=== PATIENT | female | born 1985 | race Two or more races ===

== ENCOUNTER 2017-02-01 14:07 | Emergency (ER) | payer OTHER ==
[~2017-02-01] VITALS: Ht 170.2 cm; Wt 90.7 kg
[~2017-02-01 14:07] MED LIST: FLEXERIL PO; IBUPROFEN800 MG PO
== END 2017-02-01 15:53 | disposition home or self-care (01) ==
LOC: CFTX 14:07 → CED 14:07 → CFTX 15:21
DX: J02.9 Acute pharyngitis, unspecified (principal); H92.02 Otalgia, left ear; F17.210 Nicotine dependence, cigarettes, uncomplicated; Z79.899 Other long term (current) drug therapy
CPT/HCPCS: 87651; 96372; 99283; J1100